=== PATIENT | male | born 1970 | race Caucasian/White ===

== ENCOUNTER → 2022-01-08 | Day surgery (SDC) | payer OTHER ==
[~2022-01-08] VITALS: Ht 188 cm; Wt 145.1 kg
[~2022-01-08] MED LIST: ADVIL200 M1 PO; AMLODIPINE-VAL1 EAC1 PO; ATORVASTATIN CA20 MG PO; CLONIDINE HCL0.1 MG PO; FENTANYL 25 M1 PATCH TD; LORAZEPAM1 MG PO; METOPROLOL SUCC25 MG PO; NEURONTIN300 MG PO
== END | disposition home or self-care (01) ==
LOC: FAS 07:15
DX: Z12.11 Encounter for screening for malignant neoplasm of colon (principal); D12.4 Benign neoplasm of descending colon; D12.5 Benign neoplasm of sigmoid colon; D12.3 Benign neoplasm of transverse colon; D12.8 Benign neoplasm of rectum; K57.30 Diverticulosis of large intestine without perforation or abscess without bleeding; Z80.0 Family history of malignant neoplasm of digestive organs; I10 Essential (primary) hypertension; E78.00 Pure hypercholesterolemia, unspecified; E78.5 Hyperlipidemia, unspecified; J45.909 Unspecified asthma, uncomplicated; Z88.1 Allergy status to other antibiotic agents; Z88.5 Allergy status to narcotic agent; Z79.899 Other long term (current) drug therapy; Z87.891 Personal history of nicotine dependence; Z72.89 Other problems related to lifestyle
CPT/HCPCS: J2704; J7120